=== PATIENT | male | born 1980 | race Caucasian/White ===

== ENCOUNTER 2019-05-10 15:28 | Emergency (ER) | payer BC, OTHER ==
[2019-05-10 17:26] VITALS: BP 154/87
--- NOTE | 2019-05-10 17:44 | UC ---
Throat Pain/Nasal David HPI - HPI Summary HPI Summary: 38-year-old male comes in with sinusitis symptoms for 3 days. He's had rhinorrhea that's now turning green. He has sinus pressure. He has been using oxymetazoline nasal spray. Today he had a fever things are getting worse. He did take ibuprofen today which did help with the symptoms. Denies any shortness of breath. No bodyaches. - History of Current Complaint Chief Complaint: UCGeneralIllness Stated Complaint: FEVER,THROAT COMPLAINT Time Seen by Provider: 05/10/19 17:33 Pain Intensity: 0 - Allergies/Home Medications Allergies/Adverse Reactions: Allergies Allergy/AdvReac Type Severity Reaction Status Date / Time No Known Allergies Allergy Verified 05/10/19 17:26 Home Medications: Home Medications Amoxicillin PO (*) [Amoxicillin 875 MG (*)] 875 mg PO BID #20 tab 05/10/19 [Rx] Fluticasone NASAL SPRAY 50MCG* [Flonase NASAL SPRAY 50MCG*] 2 spray BOTH NARES DAILY #1 btl 05/10/19 [Rx] PMH/Surg Hx/FS Hx/Imm Hx Previously Healthy: Yes - Surgical History Surgical History: None - Family History Known Family History: Positive: Non-Contributory - Social History Alcohol Use: None Substance Use Type: None Smoking Status (MU): Never Smoked Tobacco - Immunization History Most Recent Influenza Vaccination: Not the season Review of Systems All Other Systems Reviewed And Are Negative: Yes Constitutional: Positive: Fever, Other - see hpi Skin: Positive: Negative Eyes: Positive: Negative ENT: Positive: Nasal Discharge, Sinus Congestion, Sinus Pain/Tenderness Respiratory: Positive: Cough Cardiovascular: Positive: Negative Gastrointestinal: Positive: Negative Motor: Positive: Negative Neurovascular: Positive: Negative Musculoskeletal: Positive: Negative Neurological/Mental Status: Positive: Negative Psychological: Positive: Negative Is Patient Immunocompromised?: No Physical Exam Triage Information Reviewed: Yes Appearance: No Pain Distress, Well-Nourished, Ill-Appearing - mild Vital Signs: Initial Vital Signs Temp 98.1 F 05/10/19 17:21 Pulse 75 05/10/19 17:21 Resp 14 05/10/19 17:21 BP 154/87 05/10/19 17:21 Pulse Ox 99 05/10/19 17:21 Vital Signs Reviewed: Yes Eye Exam: Normal Eyes: Positive: Conjunctiva Clear ENT: Positive: Pharyngeal erythema, Nasal congestion, Nasal drainage, TMs normal Neck: Positive: Supple Respiratory: Positive: Lungs clear, Normal breath sounds, No respiratory distress Cardiovascular: Positive: RRR Musculoskeletal: Positive: Strength Intact, ROM Intact Neurological: Positive: Alert, Muscle Tone Normal Psychological: Positive: Age Appropriate Behavior Skin Exam: Normal Throat Pain/Nasal Course/Dx - Course Course Of Treatment: DISCUSSED VIRAL VERSES BACTERIAL INFECTIONS AND THE ROLE OF ANTIBIOTICS. THE PATIENT PREFERS TO BE ON ANTIBIOTICS AT THIS TIME. I recommended stopping the oxymetazoline and switching to Flonase and increasing fluid intake. - Differential Dx/Diagnosis Provider Diagnosis: Sinusitis Discharge ED - Sign-Out/Discharge Documenting (check all that apply): Patient Departure All imaging exams completed and their final reports reviewed: No Studies - Discharge Plan Condition: Stable Disposition: HOME Prescriptions: Amoxicillin PO (*) [Amoxicillin 875 MG (*)] 875 mg PO BID #20 tab Fluticasone NASAL SPRAY 50MCG* [Flonase NASAL SPRAY 50MCG*] 2 spray BOTH NARES DAILY #1 btl Patient Education Materials: Sinusitis (ED) Referrals: Cele Jeffries, [facility] [Primary Care Provider] - Additional Instructions: FOLLOW UP WITH YOUR DOCTOR IF NOT COMPLETELY IMPROVED. Stop using the oxymetazoline nasal spray as it may be causing your sinuses to being unable to drain. Start the Flonase nasal spray which is a steroid which did decrease inflammation. GET REEVALUATED SOONER IF NOT IMPROVED OR WORSE OR ANY QUESTIONS OR CONCERNS. - Billing Disposition and Condition Condition: STABLE Disposition: Home
== END 2019-05-10 17:52 | disposition home or self-care (01) ==
LOC: UCCORT 15:28
DX: J32.9 Chronic sinusitis, unspecified (principal)
CPT/HCPCS: 99212; G0463